=== PATIENT | female | born 1985 | race Caucasian/White ===

== ENCOUNTER 2016-12-08 19:54 | Emergency (ER) | payer MEDICAID ==
[~2016-12-08] VITALS: Ht 163.8 cm; Wt 129.3 kg
--- NOTE | 2016-12-08 19:59 | Emergency Room Report ---
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 N Clinical Suspician of Infection? N Mental Status: 1 - Regular (Normal Baseline) Sepsis Risk:Possible Sepsis Risk Have you (or family members/close friends) recently traveled outside the [place]? N If Yes, where/when: Have you had exposure to infectious disease within the past month? N TB? Other? Specify: Comment The patient says she accidentally ate some strawberries this evening, unknown allergen for her. She had her typical reaction which included a sensation of swelling of her tongue flushing of her cheeks and difficulty breathing. 911 was called and she was given epinephrine and Benadryl and now she feels better. She says that she had an EpiPen but it was recalled at the beginning of this month. ALLERGIES Coded Allergies: STRAWBERRIES (FOOD) (Severe, ANAPHYLAXIS 12/08/16) codeine (12/08/16) History Medical History Surgical Hx Previous Surgery? Review of Systems All Other Systems Reviewed and Negative ENT see HPI. Respiratory shortness of breath Skin other (see HPI) Physical Exam Vital Signs Vital Signs Date Time Temp Pulse Resp B/P Pulse O2 O2 Flow FiO2 Ox Delivery Rate 12/08 2024 98.4 93 20 122/64 99 12/09 2003 20 99 12/09 1955 98.4 95 20 143/86 99 (Luis Camara MD) General Appearance normal appearance, WD/WN Eye Exam - bilateral eye normal exam, bilateral eye PERRL, bilateral eye EOMI Ear, Nose, Throat hearing grossly normal, normal ENT inspection, no edema, no stridor Neck normal inspection, non-tender, supple, full range of motion Respiratory Status Yes: trachea midline, chest symmetrical, non tender chest. No: respiratory distress. Lung Sounds bilateral: normal breath sounds, lungs clear. 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 No Results/Orders Current Medication Orders Sig/Marco Start time Last Medication Dose Route Stop Time Status Admin Sodium Chloride 10 ML PRN PRN 12/08 2029 AC IV 12/09 2026 Sodium Chloride 0 .STK-MED ONE 12/09 2015 DC IV Famotidine 20 MG ONCE ONE 12/08 2014 DC 12/08 IV 12/08 Famotidine 0 .STK-MED ONE 12/08 2014 DC IV Methylprednisolone 125 MG ONCE ONE 12/08 2014 DC 12/08 Sodium Succinate IV 12/08 Methylprednisolone 0 .STK-MED ONE 12/08 2014 DC Sodium Succinate .ROUTE Sodium Chloride 8 ML ONCE ONE 12/08 2014 DC 12/08 IV 12/09 2015 2019 Orders Procedure Date/time Status ELECTROCARDIOGRAM REQUEST 12/08 2026 Active IV SALINE LOCK 12/08 2026 Active CM/EKG CM/EKG Comments EKG interpreted by Luis Camara MD: Rhythm: sinus Rate: 95 [place]: normal Ectopy: none Conduction: normal ST Segment Changes: none T Wave Changes: none Q Waves: none No evidence of acute ischemia or injury Normal electrocardiogram Progress - History 30 5 PM: The patient remains asymptomatic. Departure Departure Disposition DC Home or Self Care(routine) Clinical Impression Primary Impression: Acute allergic reaction Qualifiers: Encounter type: initial encounter Qualified Code: T78.40XA - Allergy, unspecified, initial encounter Condition STABLE Referrals NO REFERRAL Additional Instructions Additional instructions for ALLERGIC REACTION: See your physician as soon as possible for further evaluation. Return immediately if severe intolerable rash or itching, trouble breathing, or faintness. Prescriptions Current Visit Scripts Epinephrine (Epipen 2-Rasheed) 1 MG MR ONCE #1 KIT DIPHENHYDRAMINE HCL (Benadryl) 25 MG PO Q6H #12 TABLET Prednisone (Prednisone 20MG Tab) 20 MG PO BID #6 TAB Famotidine (Pepcid 20MG) 20 MG PO BID #6 TAB ED Critical Care Critical Care No at 2034
--- NOTE | 2016-12-08 19:59 | Emergency Room Report ---
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 N Clinical Suspician of Infection? N Mental Status: 1 - Regular (Normal Baseline) Sepsis Risk:Possible Sepsis Risk Have you (or family members/close friends) recently traveled outside the [place]? N If Yes, where/when: Have you had exposure to infectious disease within the past month? N TB? Other? Specify: Comment The patient says she accidentally ate some strawberries this evening, unknown allergen for her. She had her typical reaction which included a sensation of swelling of her tongue flushing of her cheeks and difficulty breathing. 911 was called and she was given epinephrine and Benadryl and now she feels better. She says that she had an EpiPen but it was recalled at the beginning of this month. ALLERGIES Coded Allergies: STRAWBERRIES (FOOD) (Severe, ANAPHYLAXIS 12/08/16) codeine (12/08/16) History Medical History Surgical Hx Previous Surgery? Review of Systems All Other Systems Reviewed and Negative ENT see HPI. Respiratory shortness of breath Skin other (see HPI) Physical Exam Vital Signs Vital Signs Date Time Temp Pulse Resp B/P Pulse O2 O2 Flow FiO2 Ox Delivery Rate 12/08 2024 98.4 93 20 122/64 99 12/09 2003 20 99 12/09 1955 98.4 95 20 143/86 99 (Luis Camara MD) General Appearance normal appearance, WD/WN Eye Exam - bilateral eye normal exam, bilateral eye PERRL, bilateral eye EOMI Ear, Nose, Throat hearing grossly normal, normal ENT inspection, no edema, no stridor Neck normal inspection, non-tender, supple, full range of motion Respiratory Status Yes: trachea midline, chest symmetrical, non tender chest. No: respiratory distress. Lung Sounds bilateral: normal breath sounds, lungs clear. 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 No Results/Orders Current Medication Orders Sig/Marco Start time Last Medication Dose Route Stop Time Status Admin Sodium Chloride 10 ML PRN PRN 12/08 2029 AC IV 12/09 2026 Sodium Chloride 0 .STK-MED ONE 12/09 2015 DC IV Famotidine 20 MG ONCE ONE 12/08 2014 DC 12/08 IV 12/08 Famotidine 0 .STK-MED ONE 12/08 2014 DC IV Methylprednisolone 125 MG ONCE ONE 12/08 2014 DC 12/08 Sodium Succinate IV 12/08 Methylprednisolone 0 .STK-MED ONE 12/08 2014 DC Sodium Succinate .ROUTE Sodium Chloride 8 ML ONCE ONE 12/08 2014 DC 12/08 IV 12/09 2015 2019 Orders Procedure Date/time Status ELECTROCARDIOGRAM REQUEST 12/08 2026 Active IV SALINE LOCK 12/08 2026 Active CM/EKG CM/EKG Comments EKG interpreted by Luis Camara MD: Rhythm: sinus Rate: 95 [place]: normal Ectopy: none Conduction: normal ST Segment Changes: none T Wave Changes: none Q Waves: none No evidence of acute ischemia or injury Normal electrocardiogram Progress - History 30 5 PM: The patient remains asymptomatic. Departure Departure Disposition DC Home or Self Care(routine) Clinical Impression Primary Impression: Acute allergic reaction Qualifiers: Encounter type: initial encounter Qualified Code: T78.40XA - Allergy, unspecified, initial encounter Condition STABLE Referrals NO REFERRAL Additional Instructions Additional instructions for ALLERGIC REACTION: See your physician as soon as possible for further evaluation. Return immediately if severe intolerable rash or itching, trouble breathing, or faintness. Prescriptions Current Visit Scripts Epinephrine (Epipen 2-Rasheed) 1 MG MR ONCE #1 KIT DIPHENHYDRAMINE HCL (Benadryl) 25 MG PO Q6H #12 TABLET Prednisone (Prednisone 20MG Tab) 20 MG PO BID #6 TAB Famotidine (Pepcid 20MG) 20 MG PO BID #6 TAB ED Critical Care Critical Care No at 2039
[2016-12-08] MEDS ORDERED: EPI-PEN1 MG/M1 MR (20:09)
[2016-12-08] MEDS ORDERED: Pepcid20 MG PO (20:09)
[2016-12-08] MEDS ORDERED: BENADRYL ALLERG25 M3 PO (20:09)
[2016-12-08] MEDS ORDERED: PREDNISONE20 MG PO (20:09)
[2016-12-08 20:36] VITALS: BP 122/64
== END 2016-12-08 20:41 | disposition home or self-care (01) ==
LOC: ER 19:54
DX: T78.1XXA Other adverse food reactions, not elsewhere classified, initial encounter (principal); R06.02 Shortness of breath